=== PATIENT | male | born 1955 | race Caucasian/White ===

== ENCOUNTER 2017-08-24 12:44 | Outpatient (CLI) | payer BC ==
[~2017-08-24 12:44] MED LIST: NKM
--- NOTE | 2017-08-25 14:11 | Diagnostic Imaging Report ---
Indication: Technique: MRI of the ankle without contrast and the following sequences were obtained: Comparison: Findings: There is an external marker the medial ankle in the area of pain. Subjacent to the external marker there is a prominent vessel with mild adjacent subcutaneous stranding. No fluid is seen within the vein. Distal tibiofibular syndesmosis including the anteroinferior and posteroinferior tibiofibular ligaments are intact. The anterior and posterior talofibular and the calcaneofibular ligaments are intact. The deltoid ligament complex is intact. Spring ligament is intact. The anterior extensors, medial flexors, lateral peroneal and Achilles tendons are intact. There is no abnormal bone marrow signal or linear fracture. Talar dome and tibial plafond are intact. Tarsal tunnel and sinus tarsi are unremarkable. There is no tibiotalar joint effusion. Prominent T2 signal is seen at the posterior aspect of the subtalar joint, could represent prominent joint recess versus ganglion cyst Visualized portions of the plantar fascia are unremarkable. Impression: Nonspecific edema of the subcutaneous fat in the region of marker at the medial malleolus. There is a superficial vein running through this area which demonstrates absence of flow void. Absence of flow void may be artifactual due to sluggish flow, but could indicate thrombosis, with the surrounding edema being a manifestation of superficial thrombophlebitis. Correlate with clinical findings No significant osseous, tendinous, or ligamentous abnormality
== END 2017-08-24 14:44 | disposition home or self-care (01) ==
LOC: MRI 12:44
DX: S99.912A Unspecified injury of left ankle, initial encounter (principal); X58.XXXA Exposure to other specified factors, initial encounter; Y93.9 Activity, unspecified; Y92.9 Unspecified place or not applicable